=== PATIENT | male | born 1975 | race Caucasian/White ===

== ENCOUNTER 2022-02-19 08:13 | Emergency (ER) | payer SELFPAY ==
[2022-02-19 08:25] VITALS: PULSE 95; RESP 18; TEMP 36.6; O2SAT 97; BMI 38.3
--- NOTE | 2022-02-19 08:35 | HMH.EDUTC ---
[facility] [place] Clinical Impression: UTI (urinary tract infection) Qualifiers: Urinary tract infection type: site unspecified Hematuria presence: without hematuria Qualified Code(s): N39.0 - Urinary tract infection, site not specified Disposition: Home, Self-Care Condition on Discharge: Good Instructions: DI for Urinary Tract Infection (UTI) Additional Instructions: Drink plenty of fluids. Drink a glass of cranberry juice every day if you can. Take tylenol or ibuprofen for pain or fever. Take the medications as directed. Follow up with your regular doctor. GO TO THE ER FOR ANY WORSENING SYMPTOMS Prescriptions: Doxycycline Monohydrate [Doxycycline Levy 100mg Tab] 100 mg PO Q12 7 Days #14 tab Prescription Printed Referrals: Provider,Referral, MD [Primary Care Provider] - Time of Disposition: 08:48 Medical Decision Making - Medical Records Medical records reviewed: No: I reviewed the patient's medical records. - Basilio Inquiry Pt receiving controlled substance: No Vital Signs: 02/19/22 08:25 02/19/22 08:57 Temperature 97.8 F 97.8 F Temperature Source Oral Pulse Rate 95 H Pulse Rate [Left] 95 H Respiratory Rate 18 18 Blood Pressure 180/90 H 02 Sat by Pulse Oximetry 97 Orders (Tests/Meds): ED MEDICATIONS Discontinued Medications Generic Name Dose Route Start Last Admin Trade Name Atr PRN Reason Stop Dose Admin Ceftriaxone Sodium 1 gm 02/19/22 08:34 02/19/22 08:56 Ceftriaxone 1gm Vial IM 02/19/22 08:35 1 gm ONCE ONE Administration Lidocaine HCl 0 ml 02/19/22 08:34 02/19/22 08:56 Lidocaine 1% 5ml Pf Vial IM 02/19/22 08:35 2 ml ONCE ONE Administration Medical Decision Narrative: He was unable to give a urine sample today. He states that he knows he has a UTI and needs to be treated for it. [facility] [place] General Stated complaint: possible uti Time Seen by Provider: 02/19/22 08:43 Description of Symptoms (Recalled from Triage Doc. by RN): patient comes in for possible uti. patient states he has had burning in his urethra for 2 days. HEENT Symptoms (Recalled from RN notes): No Resp Symptoms (Recalled from RN notes): No Skin Symptoms (Recalled from RN notes): No MS Symptoms (Recalled from RN notes): No Functional Status (Recalled from RN notes): n/a - History of Present Illness Provider Complaint: He states that he has been having burning with urination for the past 2 days. - Related Data Previous Rx's Medication Instructions Recorded Doxycycline Monohydrate 100 mg PO Q12 7 Days #14 tab 02/19/22 [Doxycycline Levy 100mg Tab] Allergies Allergy/AdvReac Type Severity Reaction Status Date / Time No Known Allergies Allergy Verified 02/19/22 08:29 - Worker's Comp Is this a Worker's Comp case?: No [facility] History - Hepatitis A Screen Attestation statement:: This patient has been screened for Hepatitis A risk factors. I have reviewed the patient's past medical history: Yes ROS Obtained: Yes All systems reviewed & no additional complaints - Constitutional Constitutional: Denies chills, Denies fever(s) - Eyes Eyes: Denies eye discharge - Gastrointestinal Gastrointestingal: Reports: nausea. Denies: abdominal pain, cramping, diarrhea, vomiting - Musculoskeletal Musculoskeletal: Denies back pain - Integumentary/Breasts Skin/Breast: Denies rash - Neurologic Neurologic: Denies tingling/numbness/burning sensations Physical Exam - General General appearance: alert, in no apparent distress - Head Head exam: atraumatic, normocephalic, normal inspection - Eye Eye exam: Present: normal appearance, PERRL, EOMI - ENT ENT exam: Present: normal exam, normal oropharynx, mucous membranes moist, TM's normal bilaterally, normal external ear exam - Neck Neck exam: Present: normal inspection, full ROM, trachea midline. Absent: meningismus, lymphadenopathy - Chest Chest inspection: Present: normal
[2022-02-19 08:57] VITALS: BP 180/90; PULSE 95; RESP 18; TEMP 36.6
== END 2022-02-19 08:57 | disposition home or self-care (01) ==
PROVIDERS: Emergency Provider Nurse Practitioner Family
DX: N39.0 Urinary tract infection, site not specified (principal)
CPT/HCPCS: 96372; 99213; G0463; J0696